=== PATIENT | male | born 1970 | race Caucasian/White ===

== ENCOUNTER 2024-08-13 07:49 | Outpatient (OUT) | payer OTHER, SELFPAY ==
[2024-08-13 08:47] LABS: Alanine Aminotransferase 40 U/L (16-63); Albumin Globulin Ratio 1.1; Albumin Level 3.7 g/dL (3.4-5.0); Alkaline Phosphatase 75 U/L (46-116); Anion Gap 12.9; Aspartate Amino Transferase 20 U/L (15-37); BUN Creatinine Ratio 16.7; Bilirubin Total 0.6 mg/dL (0.2-1.0); Calcium 9.2 mg/dL (8.5-10.1); Carbon Dioxide 30.1 mmol/L (21.0-32.0); Chloride 104 mmol/L (98-107); Chol HDL Ratio 3.2; Cholesterol 123 mg/dL (<=200); Estimated GFR (African America >60 (>=60 mL/min/1.73m^2); Estimated GFR (Non-African Ame >60 (>=60 mL/min/1.73m^2); Globulin 3.4 g/dL; Glucose 148 mg/dL (74-106); HDL Cholesterol 38 mg/dL (40-60); Sodium 143 mmol/L (136-145); TSH W/ REFLEX FT4 1.536 uIU/mL (0.358-3.740); Total Protein 7.1 g/dL (6.4-8.2); Triglycerides 110 mg/dL (<=150)
[2024-08-13 08:54] LABS: Estimated Average Glucose 180 mg/dL; Glycohemoglobin A1C 7.9 % (4.5-6.2)
== END 2024-08-13 07:50 | disposition home or self-care (01) ==
LOC: LAB 07:49
PROVIDERS: PCP Family Medicine; Visit Provider Family Medicine
DX: M77.11 Lateral epicondylitis, right elbow (principal); E11.29 Type 2 diabetes mellitus with other diabetic kidney complication; R80.9 Proteinuria, unspecified; E78.2 Mixed hyperlipidemia
CPT/HCPCS: 36415; 80053; 80061; 83036; 84443